=== PATIENT | female | born 1970 | race Caucasian/White ===

== ENCOUNTER 2021-11-08 01:04 | Day surgery (SDC) | payer BC, SELFPAY ==
[2021-10-25 14:31] VITALS: BMI 29.6
[2021-11-08 07:17] VITALS: BP 110/73; PULSE 73; RESP 18; TEMP 36.3; O2SAT 100
[2021-11-08] MEDS: LACTATED RINGERS 1,000 ML 150 ML IV CONT (07:20)
--- NOTE | 2021-11-08 07:29 | WPDANESEPPF ---
Anes - Initial Pre Proc Eval Procedure: Operation Date: 11/08/21 08:30 Proposed Procedures p Screening Colonoscopy - Jose Brewer MD Date/Time: 11/08/21 07:29 Surgeon: Jose Brewer MD Pre Op Diagnosis: hx of colon polyps Patient Data Age: 51 Gender: F Height: 1.63 m Weight: 79 kg Last Vital Signs Temp 36.3 C L 11/08/21 07:17 Pulse 73 11/08/21 07:17 Resp 18 11/08/21 07:17 BP 110/73 11/08/21 07:17 Pulse Ox 100 11/08/21 07:17 Allergies Allergy/AdvReac Type Severity Reaction Status Date / Time No Known Allergies Allergy Verified 11/08/21 07:16 Home Medications Medication Instructions Recorded Confirmed Type No Home Medications 10/25/21 10/25/21 History Patient hx anesthesia problems: none Family hx anesthesia problems: none Results Review: All pre-operative results and documents have been reviewed as part of the pre-operative evaluation. PMFSH Past Medical History Medical History (Updated 11/08/21 @ 07:29 by Ryan Enciso MD) Hyperlipidemia Overweight Surgical History Surgical History (Updated 11/08/21 @ 07:32 by Ryan Enciso MD) H/O colonoscopy H/O: hysterectomy History of sleeve gastrectomy Social History Social History Smoking status: Never smoker Alcohol intake: never Substance use: never Substance use type: does not use Living arrangements: with family Spiritual care concerns: No Anes - Eval Final PreProcedure Day of Procedure 11/08/21 07:29 Patient weight: overweight Heart: regular rate and rhythm Lungs: clear to auscultation Airway: Mallampati scale class II Neurological: alert and oriented Last oral intake: >/= 8 hours ASA classification: II Emergent: no Anesthetic plan: proceed Anesthesia type and monitoring: general GIVS and standard monitoring Results Review: All pre-operative results and documents have been reviewed as part of the pre-operative evaluation. Informed Consent: The patient's anesthetic plan and its attendant risks and benefits were discussed with the patient/family/POA. Questions were solicited and answers provided to the satisfaction of the patient/family/POA.
--- NOTE | 2021-11-08 07:50 | PM.HPGS ---
History of Present Illness History of Present Illness Consent: Risks, benefits, and alternatives have been discussed and questions answered. Patient agrees to proceed with procedure. Chief complaint: hx of colon polyps Narrative: Lois Wright is a 51 year old female with colon polyp 3 years ago. Review of Systems Constitutional: Constitutional: Denies headache(s) and Denies weakness Eyes: Eyes: Denies blurry vision ENT: Reports Normal hearing present, Denies headache(s) and Denies neck pain Cardiovascular: Cardiovascular: Denies chest pain and Denies dyspnea Respiratory: Respiratory: Denies dyspnea Gastrointestinal: Gastrointestinal: Reports no additional gastrointestinal complaints Genitourinary: Genitourinary: Denies dysuria Musculoskeletal: Musculoskeletal: Denies neck pain Integumentary/Breasts: Skin/Breast: Denies dry skin Neurologic: Reports Normal hearing present, Denies headache(s) and Denies weakness Psychiatric: Psychiatric: Denies anxiety Endocrine: Endocrine: Denies change in body appearance Hematologic/Lymphatic: Hematologic/Lymphatic: Denies easy bleeding Allergic/Immunologic: Allergic/Immunologic: Denies urticaria PMFSH Past Medical History Medical History (Updated 11/08/21 @ 07:50 by Jose Brewer MD) Colon polyp Hyperlipidemia Overweight Surgical History Surgical History (Updated 11/08/21 @ 07:32 by Ryan Enciso MD) H/O colonoscopy H/O: hysterectomy History of sleeve gastrectomy Social History Social History Smoking status: Never smoker Alcohol intake: never Substance use: never Substance use type: does not use Living arrangements: with family Spiritual care concerns: No Meds Home Medications and Allergies Home Medications Medication Instructions Recorded Confirmed Type No Home Medications 10/25/21 10/25/21 History Allergies Allergy/AdvReac Type Severity Reaction Status Date / Time No Known Allergies Allergy Verified 11/08/21 07:16 Vital Signs Vital Signs - 24 hr 11/08/21 07:17 Temperature 97.4 F L Pulse Rate 73 Respiratory Rate 18 Blood Pressure 110/73 Pulse Oximetry 100 Exam Const: General: comfortable and no acute distress HENMT: General nose exam: Normal nares present Eyes: General: appearance normal, both eyes and all related structures Neck: Neck: no JVD Resp: Auscultation: clear to auscultation bilaterally Cardio: Rate: regular rate Rhythm: regular rhythm GI: Inspection: non-distended GI Palp: Yes Soft to palpation Skin: General skin exam: normal color Neuro: General: gait normal Speech: normal speech Extrem: General: normal to inspection Psych: Mental Status: mental status grossly normal Assessment and Plan Assessment and plan (1) Colon polyp: Code(s): K63.5 - Polyp of colon Status: Acute Assessment and Plan: colonoscopy
[2021-11-08 08:09] VITALS: BP 104/64; PULSE 79; RESP 18; O2SAT 94
[2021-11-08 08:19] VITALS: BP 100/65; PULSE 67; RESP 17; O2SAT 100
[2021-11-08 08:29] VITALS: BP 99/66; PULSE 65; RESP 15; O2SAT 98
== END 2021-11-08 08:38 | disposition home or self-care (01) ==
PROVIDERS: PCP Nurse Practitioner Adult Health; Visit Provider Internal Medicine Gastroenterology
PROC: 0DJD8ZZ Inspection of Lower Intestinal Tract, Via Natural or Artificial Opening Endoscopic (ICD-10-PCS; CPT 45378; principal; 2021-11-08 08:30)
DX: Z12.11 Encounter for screening for malignant neoplasm of colon (principal); D12.0 Benign neoplasm of cecum; K64.8 Other hemorrhoids; Z98.84 Bariatric surgery status
CPT/HCPCS: 45380; 88305; J2704; J7120

== ENCOUNTER 2023-01-03 08:41 | Emergency (ER) | payer BC, SELFPAY ==
[2023-01-03] VITALS (11 sets, daily range): BP systolic 100–121; BP diastolic 63–82; PULSE 60–74; RESP 13–18; TEMP 36.4–36.7; O2SAT 95–99
--- NOTE | ~2023-01-03 | CT_ITS ---
EXAMINATION: CT brain wo con DATE: 01/03/2023 09:31 INDICATION: Syncope. TECHNIQUE: Computed tomography (CT) of the head was performed without intravenous contrast. The mA wa s adjusted according to patient size. Iterative reconstruction technique was employed. The dose-lengt h product was 605.33 mGy-cm. COMPARISON: None FINDINGS: There are scattered areas of low attenuation in the cerebral white matter. There is no intr acranial hemorrhage, acute infarction, or abnormal intracranial mass lesion. The ventricles are wayne l in size. There is mild mucosal thickening in the paranasal sinuses. The mastoid air cells are wayne l. The orbits are normal. IMPRESSION: 1. Mild nonspecific cerebral white matter disease, which likely represents chronic small vessel ische sarika disease. Reviewed, dictated and finalized at location A. [employer] IMPRESSION: 1. Mild nonspecific cerebral white matter disease, which likely represents machinery mover paula small vessel ischemic disease.
--- NOTE | 2023-01-03 08:44 | ECG_ITS ---
Measurements Intervals [place] Rate: 60 P: 48 IL: 145 QRS: -7 QRSD: 88 T: 4 QT: 399 QTc: 400 Interpretive Statements SINUS RHYTHM RSR' IN V1 OR V2, PROBABLY NORMAL VARIANT LOW QRS VOLTAGE IN PRECORDIAL LEADS BORDERLINE ST-T WAVE ABNORMALITY- ANT/INF LEAD BORDERLINE ECG NO PREVIOUS ECG AVAILABLE FOR COMPARISON Electronically Signed On 01-03-2023 9:51:01 [employer]IC[employer] by Jenaro Coy D.O.
--- NOTE | 2023-01-03 08:53 | ED.DIZZY ---
HPI - Dizziness General Chief Complaint: Syncope Stated Complaint: SYNCOPAL POST LAB DRAW Time Seen by Provider: 01/03/23 08:52 Source: patient Mode of arrival: EMS Limitations: no limitations History of Present Illness HPI Narrative: This is a 52-year-old female comes into the ED with chief complaint of syncope following an outpatient lab draw this morning. She arrives via EMS. According to EMS her blood pressure was in the 90s over 50s, but shortly improved to 120/80. Patient states she started to feel faint shortly after the [facility] employee put the needle in her arm. She does not remember passing out and only vaguely remembers when the EMS personnel took her to the ambulance. She states that the [facility] employee said her eyes rolled back and she passed out. Patient denies tongue lacerations. Denies incontinence. She states that her symptoms have largely resolved here in the ED. No preceding symptoms to the syncope. Denies fevers, chills, abdominal pain, chest pain, shortness of breath, nausea, vomiting. Related Data Home Medications Medication Instructions Recorded Confirmed No Home Medications 10/25/21 10/25/21 Allergies Allergy/AdvReac Type Severity Reaction Status Date / Time No Known Allergies Allergy Verified 11/08/21 07:16 Review of Systems Review of Systems: CONSTITUTIONAL: Denies fever, chills, or sweats. EYES: Denies visual changes, redness, or discharge. ENT: Denies rhinorrhea, congestion, sore throat, or otalgia. CARDIOVASCULAR: Denies chest pain, palpitations, or edema. RESPIRATORY: Denies cough or dyspnea. GASTROINTESTINAL: Endorses nausea. Denies abdominal pain, vomiting, or diarrhea. GENITOURINARY: Denies dysuria or hematuria. SKIN: Denies rash or itching. MUSCULOSKELETAL: Denies back pain, joint pain, or myalgia. NEUROLOGIC: Endorses syncope. Endorses dizziness. Denies headache, numbness, weakness. PSYCHIATRIC: Denies anxiety or depression. [facility] Past Medical History Medical History (Updated 01/03/23 @ 10:40 by Elan Ayala PA-C) Colon polyp Hyperlipidemia Overweight Surgical History Surgical History (Updated 11/08/21 @ 07:32 by Ryan Enciso MD) H/O colonoscopy H/O: hysterectomy History of sleeve gastrectomy Social History Social History Smoking status: Never smoker Alcohol intake: never Substance use: never Substance use type: does not use Living arrangements: with family Spiritual care concerns: No Exam Narrative: GENERAL: Well-appearing, well-nourished, and in no acute distress. HEAD: Normocephalic, atraumatic. EYES: PERRLA and EOMI. ENT: Nares clear, no rhinorrhea or epistaxis. Mucous membranes moist. Oropharynx without tonsillar hypertrophy exudate or other lesions. NECK: Supple. No adenopathy or masses. No carotid bruits. CHEST: No respiratory distress. Clear to auscultation. No wheezes rales or rhonchi HEART: Regular rate and rhythm. No murmur heard. Normal peripheral pulses. ABDOMEN: Soft, nontender, nondistended, normal active bowel sounds. EXTREMITIES: Normal range of motion. No edema. SKIN: Warm, dry, no rash. Good skin turgor. Good skin color. NEURO: Alert and oriented x3. No focal deficits. Cranial nerves II through XII intact. 5 out of 5 strength and sensation in upper and lower extremities. Coordination intact. PSYCH: Normal mood and affect. Course Course Emergency Course: 1040: Reeval; patient feeling much improved after meclizine and Zofran. Vital Signs Vital signs: Vital Signs Temperature 97.6 F 01/03/23 08:48 Pulse Rate 60 01/03/23 08:48 Respiratory Rate 01/03/23 08:48 Blood Pressure 104/65 01/03/23 08:48 Pulse Oximetry 98 01/03/23 08:48 Oxygen Delivery Room Air 01/03/23 08:48 Temperature 98.1 F 01/03/23 11:35 Pulse Rate 74 01/03/23 11:35 Respiratory Rate 17 01/03/23 11:35 Blood Pressure 100/70 01/03/23 11:35 Pulse Oximetry
[2023-01-03 09:24] LABS: Basophils Percent Auto 0.9 % (0.2-1.2); Eosinophils Absolute Auto 0.1 K/mm3 (0-0.3); Eosinophils Percent Auto 2.6 % (0-4.4); Hematocrit 43.1 % (37.0-47.0); Hemoglobin 14.4 g/dL (12.0-15.0); Immature Granulocyte Absolute 0.01 K/mm3 (0.00-0.031); Immature Granulocyte Percent A 0.2 % (0-0.5); Lymphocytes Absolute Auto 1.74 K/mm3 (0.9-3.2); Lymphocytes Percent Auto 40.8 % (18.3-44.2); Mean Corpuscular HGB Conc 33.4 g/dl (32-36); Mean Corpuscular Hemoglobin 29.6 pg (26-34); Mean Corpuscular Volume 88.7 fl (80-100); Monocytes Absolute Auto 0.3 K/mm3 (0.1-0.6); Monocytes Percent Auto 6.3 % (2.6-8.5); Neutrophils Absolute Auto 2.1 K/mm3 (1.3-6.7); Neutrophils Percent Auto 49.2 % (45.5-73.1); Platelet Count Result 209 k/mm3 (150-375); Red Blood Count 4.86 M/mm3 (4.2-5.4); Red Cell Distribution Width 13.5 % (11.5-14.5); White Blood Count 4.3 K/mm3 (4.5-10.0)
[2023-01-03 09:32] LABS: Alanine Aminotransferase 19 U/L (6-35); Albumin Level 4.2 g/dL (3.5-5.1); Alkaline Phosphatase 63 U/L (38-126); Anion Gap 9 mmol/L (8-16); Aspartate Amino Transferase 20 U/L (14-36); Bilirubin,Total 0.7 mg/dL (0.2-1.3); Blood Urea Nitrogen 19 mg/dL (7-17); Calcium 9.1 mg/dL (8.4-10.2); Carbon Dioxide 24 mmol/L (22-30); Chloride 107 mmol/L (98-107); Estimated CRCL calculation 95 ml/min; Estimated Glomerular Filt Rate > 60; Glucose 97 mg/dL (65-110); Sodium 140 mmol/L (137-145)
[2023-01-03] MEDS: ONDANSETRON INJ 4 MG/2 ML VIAL IV PUSH (09:45)
[2023-01-03] MEDS: MECLIZINE HCL 25 MG TABLET PO (09:45)
== END 2023-01-03 11:36 | disposition home or self-care (01) ==
PROVIDERS: Emergency Medicine; Emergency Provider Physician Assistant
DX: R55 Syncope and collapse (principal); E78.5 Hyperlipidemia, unspecified; E66.3 Overweight; Z68.31 Body mass index [BMI] 31.0-31.9, adult; Z98.84 Bariatric surgery status; Z90.710 Acquired absence of both cervix and uterus; Z86.010 Personal history of colon polyps; R94.31 Abnormal electrocardiogram [ECG] [EKG]
CPT/HCPCS: 36415; 70450; 80053; 85025; 93005; 96374; 99284; A9270; J2405